=== PATIENT | female | born 1990 | race Caucasian/White ===

== ENCOUNTER 2016-06-29 19:52 | Emergency (ER) | payer OTHER ==
--- NOTE | ~2016-06-29 | ER ---
PATIENT'S NAME: FORD BEEBE [facility] AGE: 25 Y [address] ROOM: [place] [id number] LOCATION: [facility] ADMIT DATE: 06/29/2016 ER/Outpatient Report DISCHARGE DATE: 06/29/2016 FAMILY PHYSICIAN: Tawanna Holly MD ATTENDING PHYSICIAN: Jensen Hernandez TIME OF ARRIVAL: 1949 hours. TIME OF EVALUATION: 1949 hours. CHIEF COMPLAINT: Near-syncope. HISTORY OF PRESENT ILLNESS: The patient is a 25-year-old female who presents to the emergency department today with a chief complaint of near-syncope. 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 She was brought down here for further evaluation and treatment. The patient does have a history of similar episodes about 2 or 3 months ago. She did not actually ever passed out. She does have some shortness of breath with this and diaphoresis. She does report some nausea and vomiting as well as feeling like the room is spinning and feels like she has a migraine coming on. She does have some left upper quadrant left chest wall type pain. PAST MEDICAL HISTORY: Depression. PAST SURGICAL HISTORY: D and C. SOCIAL HISTORY: The patient denies any tobacco use. Reports occasional alcohol use. Denies any illicit drug use. ALLERGIES: NO KNOWN DRUG ALLERGIES. MEDICATIONS: Depression medication. REVIEW OF SYSTEMS: All systems are reviewed by myself are negative with the exception of those [facility] 25 Y [address] ROOM: [place] [id number] LOCATION: [facility] ADMIT DATE: 06/29/2016 ER/Outpatient Report DISCHARGE DATE: 06/29/2016 FAMILY PHYSICIAN: Tawanna Holly MD ATTENDING PHYSICIAN: Jensen Hernandez discussed in HPI and past medical history. PHYSICAL EXAMINATION: VITAL SIGNS: Weight 80.4 kg, blood pressure 120/72, pulse 102, respiratory rate 20, temperature 98.3, and oxygen saturation 99% on room air. GENERAL: The patient is a 25-year-old female who appears of stated age in no acute distress. She is cool and clammy, well-developed, well-nourished. HEENT: Normocephalic, atraumatic. Pupils are equal, round, and reactive to light and accommodation. Extraocular motions are intact. Nares are patent bilaterally. TMs are clear. Oropharynx is clear. NECK: Supple. There is no nuchal rigidity. CARDIOVASCULAR: Tachycardic. No murmurs, rubs, or gallops. LUNGS: Clear to auscultation bilaterally. No wheezes, rales, or rhonchi. ABDOMEN: Soft, nontender, and nondistended. No rebound, rigidity, or guarding. MUSCULOSKELETAL: The patient moves all 4 extremities. A 5/5 muscle strength. SKIN: Warm and dry. There are no rashes or lesions noted. NEUROLOGICAL: GCS 15. Alert and oriented x4. Equal invoice classification clerk strength bilaterally. LABS AND X-RAYS: Labs and x-rays are obtained. EKG is obtained, is interpreted by myself, at 1958 hours, shows sinus rhythm with a rate of 69, normal axis, normal interval. No ST-elevation, ST-depression, or T-wave inversions. Accu-Chek is 116. D-dimer is less than 0.19. CBC is unremarkable. CMP is unremarkable except for a creatinine of 1.2. LFTs normal. Mag is normal. PTT 23, PT is normal, INR is normal. CK, CK-MB, and troponin are all normal. Chest x-ray shows no acute process. Urinalysis is unremarkable except for 25 leuk esterase, 30 protein, 150 blood, 0-2 wbcs, 5-10 rbc and epithelials, negative bacteria. IMPRESSION: 1. Near-syncope. 2. Initial visit. EMERGENCY DEPARTMENT COURSE: The patient brought back to the examination room. Seen and evaluated by myself. IV is established. Laboratory analysis, imaging, and EKG are obtained as described above. Results are obtained the patient is given 2 L of normal saline. She is given 4 mg of Zofran IV. She reports she is feeling improved at this time. I have discussed results with her and we have placed an event monitor on here. I have recommend a close followup with the primary care doctor Dr. Holly in [place]. I have also recommended follow up with a curtain supervisor and she is to call for an appointment. I have discussed return- to-care instructions including worsening symptoms or any other concerns to PATIENT'S NAME: FORD BEEBE [facility] AGE: 25 Y [address] ROOM: [place] [address] LOCATION: [facility] ADMIT DATE: 06/29/2016 ER/Outpatient Report DISCHARGE DATE: 06/29/2016 FAMILY PHYSICIAN: Tawanna Holly MD ATTENDING PHYSICIAN: Jensen Hernandez return to the emergency department as soon as possible. The patient is agreeable and without further questions at this time. DISPOSITION: The patient is discharged home in good condition. DO KARMA GILES/radha /[id number] d: 06/30/16 0255 t: 06/30/16 0546, OUTPATIENT REPORT
[~2016-06-29 19:52] MED LIST: ADVIL200 MG PO; CYMBALTA30 MG PO; CYMBALTA60 MG PO; DESYREL50 MG PO; MOTRIN800 MG PO; MULTI-VITAMIN1 EACH PO; PERCOCET 5-3251 EACH PO; PERFECT IRON25 MG PO; SPRINTEC 28 DA1 EACH; WELLBUTRIN SR150 MG PO
[2016-06-29 20:11] LABS: BASOPHIL % 0.3 %; EOSINOPHIL # 0.2 K/uL (0.0-0.5); EOSINOPHIL % 1.7 %; HEMATOCRIT 42.9 % (33.0-46.0); IMMATURE GRANULOCYTE % 0.2 %; LYMPHOCYTE # 3.4 K/uL (0.8-4.0); LYMPHOCYTE % 37.1 %; MCH 28.6 pg (27.0-34.0); MCHC 32.6 gm/dL (32.0-36.5); MCV 87.7 fl (83.0-98.0); MONOCYTE # 0.8 K/uL (0.0-1.0); MONOCYTE % 8.4 %; MPV 9.5 fl (9.4-12.4); NEUTROPHIL # (ANC) 4.8 K/uL (1.8-7.8); NEUTROPHIL % 52.3 %; NRBC % 0 /100WBC (0-0.00); PLATELET COUNT 366 K/uL (150-450); RBC 4.89 M/uL (3.50-5.00); RDW-CV 13.1 % (11.9-14.6); WBC 9.3 K/uL (4.0-11.0)
[2016-06-29 20:28] LABS: INR - (THERAPEUTIC) 1.02 (0.92-1.07); PROTIME 10.7 SECONDS (9.8-11.4); PTT 23 SECONDS (25-32)
[2016-06-29 20:31] LABS: ALBUMIN 4.3 gm/dL (3.5-5.0); ALK PHOS 91 IU/L (33-138); ALT 15 IU/L (12-78); ANION GAP 14.8 (10.0-19.0); AST 18 IU/L (10-40); BLOOD UREA NITROGEN 18 mg/dL (6-24); CALCIUM 9.7 mg/dL (8.5-10.5); CHLORIDE 104 mMol/L (96-110); CO2 25 mMol/L (22-32); CPK 142 IU/L (21-215); CREATININE 1.2 mg/dL (0.5-1.1); ESTIMATED GFR (MDRD EQUATION) 55; POTASSIUM 3.8 mMol/L (3.7-5.1); SODIUM 140 mMol/L (135-145); TOTAL BILIRUBIN 0.6 mg/dL (0.0-1.5); TOTAL PROTEIN 8.2 g/dL (6.0-8.4)
[2016-06-29 20:38] LABS: BILIRUBIN URINE NEGATIVE (NEGATIVE); BLOOD URINE 150 /UL (NEGATIVE); COLOR URINE YELLOW (YELLOW); GLUCOSE URINE NEGATIVE (NEGATIVE); KETONE URINE NEGATIVE (NEGATIVE); LEUKOCYTES URINE 25 /UL (NEGATIVE); NITRITE URINE NEGATIVE (NEGATIVE); PROTEIN URINE 30 mg/dL (NEGATIVE); SPEC GRAVITY URINE 1.015 (1.003-1.035); TURBIDITY URINE CLEAR (CLEAR); UROBILINOGEN URINE 1 mg/dL (NORMAL)
[2016-06-29 20:50] LABS: BACTERIA URINE NEGATIVE (NEGATIVE); MUCUS URINE 2+ (NEGATIVE); WBC URINE 0-2 #/HPF (NEGATIVE)
[2016-06-29 20:51] LABS: AMORPHOUS URINE 1+ (NEGATIVE)
== END 2016-06-29 23:25 | disposition disaster alternative care site (69) ==
LOC: GMED 19:52
PROVIDERS: Emergency Medicine
DX: R55 Syncope and collapse (principal); F32.9 Major depressive disorder, single episode, unspecified
CPT/HCPCS: J2405; J7030

== ENCOUNTER → 2016-08-03 | Outpatient (CLI) | payer OTHER ==
[2016-08-03 10:11] LABS: ANION GAP 11.7 (10.0-19.0); BLOOD UREA NITROGEN 16 mg/dL (6-24); CALCIUM 9.1 mg/dL (8.5-10.5); CHLORIDE 106 mMol/L (96-110); CO2 29 mMol/L (22-32); CREATININE 1.1 mg/dL (0.5-1.1); ESTIMATED GFR (MDRD EQUATION) > 60; POTASSIUM 3.7 mMol/L (3.7-5.1); SODIUM 143 mMol/L (135-145)
== END | disposition disaster alternative care site (69) ==
LOC: LNHI 09:59
PROVIDERS: Internal Medicine Interventional Cardiology
DX: R00.0 Tachycardia, unspecified (principal); R07.9 Chest pain, unspecified